=== PATIENT | male | born 1960 | race Caucasian/White ===

== ENCOUNTER 2018-05-10 09:11 | Day surgery (SDC) | payer BC ==
[2018-05-10] MEDS ORDERED: FENTAnyl 50 MCG/ML VIAL (10:59)
[2018-05-10] MEDS ORDERED: MIDAZOLAM 1 MG/ML 2 ML INJ ×3 (10:59→11:01)
== END 2018-05-10 11:59 | disposition home or self-care (01) ==
LOC: GIL 09:11
DX: K92.1 Melena (principal); K57.90 Diverticulosis of intestine, part unspecified, without perforation or abscess without bleeding; K64.8 Other hemorrhoids
CPT/HCPCS: 45378